=== PATIENT | male | born 1980 | race Two or more races ===

== ENCOUNTER 2017-05-16 08:45 | Emergency (ER) | payer SELFPAY ==
[2017-05-16 08:50] VITALS: BP 136/86; BMI 30.4
--- NOTE | 2017-05-16 09:13 | DR.GENAD ---
HPI - PCP Primary Care Physician: SARAH - HPI Comment HPI Comment: NO FEVER. COUGH PRODUCTIVE WITH YELLOW SPUTUM. SOME SINUS DRAINAGE BUT DENIES HEADACHE. NON PRESCRIPTION MEDS NOT HELPING. - Complaint/Symptoms Chief Complaint Doctors Comments: COUGH COLD CONGESTION FOR 3 DAYS. Chief Complaint:: PT. C/O CHEST DISCOMFORT, COUGH, AND PAIN ON INSPIRATION. - Nurses notes reviewed Nurses Notes Review: Yes - Source History Provided: Patient, Family Member - Mode of Arrival Mode of Arrival: Ambulatory - Timing Onset of Chief Complaint: 05/15/17 Came on: Suddenly - Duration Duration: Constant Duration: Days - Severity Severity: Moderate PMH - PMH Past Medical History: Yes Past Medical History: Asthma Past Surgical History: No Surgical History: No History - Family History History of Family Medical Conditions: No - Social History Does patient currently use any type of tobacco product: No Have you used tobacco products in the last 12 months: No Type of Tobacco Use: None Does any household member use tobacco: No Alcohol Use: Occasionally Do you use any recreational Drugs:: No Lives With: Spouse Lives Where: Home - infectious screening In the last 2 months have you had wt loss of >10#?: NO Have you had fever, night sweats or hemotysis?: No Have you traveled outside the country in the last 6 months?: No Isolation: Standard ROS - Review of Systems Constitutional: Weakness, Fatigue. negative: Chills, Fever Eyes: negative: Eye Pain, Discharge ENTM: Nose Discharge, Nose Congestion, Throat Pain. negative: Ear Pain Respiratoy: Productive Cough, Short of Breath, Wheezing. negative: Hemoptysis Cardiovascular: Chest Pain (CHEST WALL.). negative: Edema, Palpitations Gastrointestinal/Abdominal: No Symptoms Reported. negative: Abdominal Pain, Nausea, Vomiting Genitourinary: negative: Dysuria, Frequency, Hematuria Neurological: Weakness, Dizziness. negative: Headache Musculoskeletal: Muscle Pain Integumentary: No Symptoms Reported Hematologic/Lymphatic: No Symptoms Reported Endocrine: No Symptoms Reported All Other Systems: Reviewed and Negative PE - Vital Signs Vitals: Temperature 98.5 F Pulse Rate 78 Respiratory Rate 17 Blood Pressure 136/86 O2 Sat by Pulse Oximetry 95 - General Limitations: No Limitations General Appearance: Alert - Head Head Exam: Normal Inspection - Eyes Eye exam: Normal Appearance - ENT ENT Exam: Normal External Ear Exam External Ear Exam: Normal External Inspection TM/Canal Exam: Bilateral Normal Nose Exam: Normal Nose Exam Mouth Exam: Normal Inspection Throat Exam: Normal Inspection - Neck Neck Exam: Trachea Midline - Chest Chest Inspection: Symmetric Chest Wall Rise - Respiratory Respiratory Exam: Normal Lung Sounds Bilat Respiratory Exam: Bilateral Wheezing, Bilateral Rhonchi, Lower Wheezing, Lower Rhonchi - Cardiovascular Cardiovascular Exam: Regular Rate, Normal Rhythm, Normal Heart Sounds - Abdominal Exam Abdominal Exam: Normal Bowel Sounds, Soft. negative: Tenderness - Extremities Extremities Exam: Normal Inspection - Back Back Exam: Normal Inspection - Neurologic Neurological Exam: Alert, Oriented X3 - Psychiatric Psychiatric Exam: Normal Affect, Normal Mood - Skin Skin Exam: Normal Color MDM - Additional Information Additional Information Obtained From: Family - Differential Diagnosis Differential Diagnosis: PNEUMONIA, BRONCHITIS, SINUSITIS Course - Treatment Treatment: SEE ORDERS. - Education/Counseling Education/Counseling: Patient, Family, Education Educated On: Diagnosis, Needs for Follow Up ROR - XRAY XRAY Interpreted by: Radiologist XRAY Findings: REPORT DISCUSS WITH PATIENT. - Diagnosis Discharge Problem: Bronchitis - Discharge Plan Condition: Stable Prescriptions: Azithromycin [ZITHROMAX Tab 250 mg *] 1 dose PO DAILY #6 tab Benzonatate [TESSALON PERLES *] 200 mg PO TID PRN #30 cap PRN Reason: Cough - Follow ups/Referrals Follow ups/Referrals: ELIAS SMITH [Primary Care Provider] - 3 days - Instructions Instructions: Acute Bronchitis, Adult, [id number] Additional Instructions: RETURN TO ED IF WORSE.
--- NOTE | 2017-05-16 09:29 | RAD ---
Examination: Chest x-ray. Clinical History: Chest discomfort, cough and pain on inspiration. Technique: PA and lateral views of the chest were obtained. Comparison: None available. Findings: The cardiac and mediastinal contours are within normal limits. No pneumothorax or pleural effusion is noted. The lungs are mildly hypoventilated, but appear clear. No acute osseous abnormality is noted. Impression: 1. Mildly hypoventilated lungs. Reported By:
== END 2017-05-16 09:43 | disposition home or self-care (01) ==
LOC: ER 08:55
DX: J40 Bronchitis, not specified as acute or chronic (principal)
CPT/HCPCS: 71046; 99282; 99283